=== PATIENT | male | born 1990 | race Caucasian/White ===

== ENCOUNTER 2016-03-13 07:52 | Emergency (ER) | payer BC ==
[~2016-03-13] VITALS: Wt 97.5 kg
== END 2016-03-13 08:58 | disposition home or self-care (01) ==
LOC: ED 07:52
DX: H10.9 Unspecified conjunctivitis (principal); F17.200 Nicotine dependence, unspecified, uncomplicated

== ENCOUNTER 2016-10-08 09:05 | Emergency (ER) | payer BC ==
[~2016-10-08] VITALS: Ht 175.2 cm; Wt 93.0 kg
[2016-10-08] MEDS ORDERED: NAPROSYN500 MG PO (10:18)
[2016-10-08] MEDS ORDERED: PERCOCET 325 MG1 TA2 PO (10:18)
== END 2016-10-08 10:59 | disposition home or self-care (01) ==
LOC: ED 09:05
DX: S42.032A Displaced fracture of lateral end of left clavicle, initial encounter for closed fracture (principal); R03.0 Elevated blood-pressure reading, without diagnosis of hypertension; F17.200 Nicotine dependence, unspecified, uncomplicated; W17.89XA Other fall from one level to another, initial encounter; Y93.89 Activity, other specified; Y92.9 Unspecified place or not applicable; Y99.9 Unspecified external cause status

== ENCOUNTER 2017-05-13 06:43 | Inpatient (IN) | payer BC ==
[~2017-05-13] VITALS: Ht 177.8 cm; Wt 96.6 kg
[2017-05-13] VITALS (7 sets, daily range): BP systolic 89–109; BP diastolic 37–56
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
--- NOTE | ~2017-05-13 | CON ---
[place], [place] REPORT OF CONSULTATION NAME: GAURAV MOHAN UNIT #: [id number] ROOM: [place] [address] DOCTOR: RAGHAV GRIFFITH ED.D (JUAN) BIRTHDATE: [birth year] DOS: 05/15/2017 HISTORY OF PRESENT ILLNESS: The patient is a 26-year-old male referred following a suicide attempt. At the present time, he is in the intensive care unit at [facility]. This patient states he is single but he does have a girlfriend. Apparently he and his girlfriend had an argument which caused him to feel suicidal. He states that he presently works at [employer] and continues to have his job. His family physician is Dr. Resendiz. His medical history is pertinent for depression. He has been following with [facility] [place]. At the present time, he denies any suicidal ideation or plan. He states he has been on 25 mg of Zoloft and it was increased by Dr. Delcid to 50 mg. At the present time, he adamantly denies any suicidal ideation or plan and states he is going to do nothing to harm himself or his girlfriend. He states he will continue to follow up at the counseling center. DIAGNOSIS: Major depressive disorder, recurrent. RECOMMENDATIONS: 1. Continue antidepressant medications as prescribed. 2. Follow up at the counseling center for outpatient therapy. Thank you very much for this consult. RAGHAV GRIFFITH ED.D CM:CONSTR:REPORT OF CONSULTATION 1243 05/15/17 1253 interface
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
--- NOTE | ~2017-05-13 | PR ---
[place], [place] PROGRESS NOTE NAME: GAURAV MOHAN UNIT #: [id number] ROOM: [place] [address] DOCTOR: RICHELLE MCLEAN MD BIRTHDATE: [birth year] DOS: 05/14/2017 CARDIOLOGY PROGRESS NOTE SUBJECTIVE: The patient was seen at his bedside in the intensive care unit today, 05/14/2017, for followup of his recent drug overdose with multiple cardioactive medications. The patient is a 26-year-old man with no previous history of heart disease and no previously available electrocardiograms. He was brought to the Emergency Room after he consumed a variety of prescription medications that he had taken from his stepfather including diuretics, beta blockers, antiplatelet agents, statins, thyroid replacement and ЮЛИЯ inhibitors. Since he has been in the hospital, he has felt well. His blood pressures have been somewhat low and his potassium has been low. Otherwise, he has been doing well. PHYSICAL EXAMINATION: VITAL SIGNS: Today pulse is 53 and regular, blood pressure is 93/54. He is afebrile. NECK: Supple. He has no jugular distention. Carotids are full. LUNGS: Respirations are unlabored. His chest is clear. HEART: Has a regular rhythm without murmurs, rubs or gallops. ABDOMEN: Benign. EXTREMITIES: Showed no edema. LABORATORY DATA: His electrocardiogram today once again shows sinus bradycardia with ST elevation in multiple leads, consistent with an early repolarization change. It is unchanged from the previous tracings. IMPRESSION: 1. Drug overdose with multiple cardiovascular medications. 2. Suicidal ideation. 3. Drug abuse. PLAN: I agree that he should be observed one more day to allow for stabilization of his hemodynamics. Presumably, the medications he took are leaving his system rapidly at this point and his blood pressure should stabilize spontaneously. We will review his echocardiogram in the morning to make sure he has no structural heart disease. If vital signs are stable and the echo looks normal, he can be discharged from a cardiac standpoint. I thank Dr. Mack for asking our advice regarding his care. [place], [place] PROGRESS NOTE NAME: GAURAV MOHAN UNIT #: [id number] ROOM: [place] [address] DOCTOR: RICHELLE MCLEAN MD BIRTHDATE: [birth year] RICHLELE MCLEAN MD CM:PNSTEVIE [id number] RICHELLE MCLEAN MD 05/14/17 1320 interface
--- NOTE | ~2017-05-13 | CON ---
[place], [place] REPORT OF CONSULTATION NAME: GAURAV MOHAN UNIT #: [id number] ROOM: [place] [address] DOCTOR: RICHELLE MCLEAN MD BIRTHDATE: [birth year] DOS: 05/13/2017 CARDIOLOGY CONSULTATION REASON FOR CONSULTATION: Multiple drug overdose, abnormal electrocardiogram. HISTORY OF PRESENT ILLNESS: The patient is a 26-year-old man who has no previous history of heart disease. There are no previous electrocardiograms available. He was brought to the Emergency Room after he consumed a variety of prescription medications that he had taken from his stepfather. These included furosemide, levothyroxine, metoprolol, Plavix, rosuvastatin, vitamin D and lisinopril. The patient is unsure how many of each he may have taken, but states that he took a lot. The prescription had been previously filled on 04/16/2017 and was a 30-day prescription, but it is not clear how many of the pills had actually been taken by the time the patient took the medications. In addition, he had been drinking and his blood alcohol level was elevated at 124. His urine drug screen was positive for benzodiazepines, cannabinoids and cocaine. The patient was somewhat lethargic upon arrival, but his heart rate was regular and in the 70s. Blood pressure was normal at 107/48. He currently feels well. He denies any chest pain or palpitations. He denies any trouble breathing. He denies lightheadedness. He has not had any obvious bleeding. PAST MEDICAL HISTORY: Unremarkable. The patient specifically denies hypertension, diabetes, hyperlipidemia, myocardial infarction or stroke. PAST SURGICAL HISTORY: His only previous surgery is insertion of tubes in his ears. MEDICATIONS: Prior to admission included omeprazole 40 mg daily and Sertraline 25 mg daily. ALLERGIES: The patient has no known drug allergies. FAMILY HISTORY: The patient's father committed suicide by overdosing with medications. There is no family history of early coronary disease. REVIEW OF SYSTEMS: The patient denies diplopia, loss of vision, lightheadedness, syncope or focal weakness. He denies orthopnea or PND. He denies nausea or vomiting. He denies fevers, chills, sweats or recent weight change. He denies any focal weakness. He denies hemoptysis or hematemesis. He denies change in his bowel or bladder habits. He denies bleeding from any site including his urine and bowels. He denies any recent weight change. He denies peripheral edema. He denies skin rashes. He denies polyuria or polydipsia. He denies heat or cold intolerance. Remainder of the review of systems is negative except as noted above. SOCIAL HISTORY: The patient does smoke cigarettes. He also does take drugs on occasion and was positive for benzodiazepines, cocaine and cannabinoids. He [place], [place] REPORT OF CONSULTATION NAME: GAURAV MOHAN UNIT #: [id number] ROOM: [place] [address] DOCTOR: RICHELLE MCLEAN MD BIRTHDATE: [birth year] also can drink alcohol to excess. PHYSICAL EXAMINATION: GENERAL: The patient is a well-nourished white male who is awake, alert and oriented. VITAL SIGNS: Pulse is 70 and regular, blood pressure is 102/54. He is temperature is 99.2. He weighs 96.6 kg and has a body mass index of 30.6. HEENT: Normocephalic and atraumatic. Extraocular muscles are intact. Sclerae are clear. Pupils are equal, round and react to light. The oral mucosa is moist. Tongue is midline. NECK: Supple. He has no jugular distention. Carotids are full. I heard no bruits. He had no neck or supraclavicular masses and no thyromegaly. LUNGS: Respirations are unlabored. His chest is clear to auscultation and percussion. He has no presacral edema or chest wall tenderness. CARDIOVASCULAR: His heart has a regular rhythm without murmurs, rubs or gallops. The PMI is not displaced. He has no precordial heave, lift or thrill. ABDOMEN: Soft and normally active without masses, organomegaly or bruits. EXTREMITIES: Showed no edema. Peripheral pulses were easily palpated bilaterally. LABORATORY DATA: I reviewed his electrocardiogram. It showed sinus rhythm with early repolarization changes. I do not believe his EKG is consistent with acute coronary ischemia. An initial troponin level was normal. IMPRESSIONS AND PLAN: Drug overdose with multiple cardioactive medications including a diuretic, a beta evonne, an ЮЛИЯ inhibitor, thyroid medication as well as an antiplatelet agent and a statin. His vital signs are stable and he shows no signs of acute hemodynamic embarrassment. Thus far, he does seem to be tolerating the medications that he took. At this point, I think that observation and supportive care are all that are indicated. We will follow serial troponin levels as well as serial EKGs to see if there are any trends. If he is still here in 2 days, we can plan on getting an echocardiogram this coming Monday to look at left ventricular function, especially since he does have a history of cocaine abuse. No other evaluation is planned at this time. [facility] and I thank Dr. Mack for asking our advice regarding his care. RICHELLE MCLEAN MD CM:CONSTR:REPORT OF CONSULTATION 1605 05/13/17 2017 interface
--- NOTE | ~2017-05-13 | PR ---
[place], [place] PROGRESS NOTE NAME: GAURAV MOHAN UNIT #: [id number] ROOM: [place] [address] DOCTOR: ROGERIO HEBERT MD BIRTHDATE: [birth year] DOS: SUBJECTIVE: The patient is feeling fairly good, does not have any new complaints. OBJECTIVE: VITAL SIGNS: Blood pressure is 107/56, pulse of 81, respirations 18, temperature 97.7. LUNGS: Diminished breath sounds, clear. HEART: Regular. ABDOMEN: Obese, soft, nontender. EXTREMITIES: Without any edema. ASSESSMENT AND PLAN: 1. Suicidal drug overdose. The patient seems to be stable with no further evidence of hypotension or bradycardia. 2. Elevated T4 noted. This is most likely from the Synthroid that he took as part of his drug overdose. We will avoid further ultrasounds and further testing for right now. Repeat TSH, T3, T4 as an outpatient. 3. Major depression, severe, recurrent. Continue increased dose of Zoloft. I am awaiting a consultation with Dr. Hubbard and Dr. Delcid and after they see the patient, the patient can be discharged. ROGERIO HEBERT MD CM:PNTRANS ROGERIO HEBERT MD 05/15/1723 interface
--- NOTE | ~2017-05-13 | PR ---
[place], [place] PROGRESS NOTE NAME: GAURAV MOHAN UNIT #: [id number] ROOM: [place] [address] DOCTOR: ROGERIO HEBERT MD BIRTHDATE: [birth year] DOS: SUBJECTIVE: The patient says he rested well, does not have any new complaints. OBJECTIVE: VITAL SIGNS: Graphic trend shows blood pressure of 96/54, pulse of 53, respirations 14, temperature 97.8. LUNGS: Diminished breath sounds, clear. HEART: Regular. ABDOMEN: Obese, soft, nontender. EXTREMITIES: Without any edema. LABORATORY DATA: White cell count of 13,000. Normal basic metabolic panel, except for potassium of 3.1. ASSESSMENT AND PLAN: 1. Hypokalemia. Supplementation is given. 2. Hypotension from antihypertensives that he took as an overdose. Continue IV fluids. 3. Abnormal T4 noted on blood work yesterday. We will do dedicated thyroid function test today. ROGERIO HEBERT MD CM:PNTRANS [id number] ROGERIO HEBERT MD 05/14/17 1041 interface
--- NOTE | ~2017-05-13 | DS ---
[place], [place] DISCHARGE SUMMARY [id number] UNIT #: [id number] ROOM: [place] [address] DOCTOR: ROGERIO HEBERT MD BIRTHDATE: [birth year] DOS: 05/15/2017 HOSPITAL COURSE: The patient was admitted to the hospital after suicidal drug overdose. The patient is not known to me. He was admitted on May 13 to the ICU. After admission, he was placed on IV fluids. His blood pressure and heart rate was monitored. Some of the medications that he took were mostly antihypertensives. His TSH was normal, but T4 was quite elevated. This was also from the Synthroid that he took as part of the drug overdose. He was seen by Dr. Warren who recommended continued monitoring. An echocardiogram was ordered, which showed no pathology. Dr. Hubbard and Dr. Delcid saw the patient. Dr. Hubbard did suggest counseling. He had been on antidepressants and the dosage was cut down recently by the primary care physician. The dosage was readjusted back to the higher dose. Dr. Delcid did see the patient and advised that the Zoloft can be increased further to 100 mg and he was advised to go back and see his counselor at [facility]. He was stable enough to discharge as per Dr. Delcid, so discharge arrangements were made for him to go home and follow up with Dr. Resendiz as an outpatient for his primary care. ROGERIO HEBERT MD CM:DISCHARG 16 52 ROGERIO HEBERT MD 05/17/172149 interface
[~2017-05-13 06:43] MED LIST: NAPROSYN500 MG PO; PERCOCET 325 MG1 TA2 PO
[2017-05-13] MEDS ORDERED: SERTRALINE HYDR25 MG PO (06:54)
[2017-05-13] MEDS ORDERED: OMEPRAZOLE40 MG PO (06:54)
[2017-05-13 07:01] LABS: BASO # 0.1 10*3/uL (0.0-0.1); BASO % 0.3 % (0.0-1.0); EOS # 0.1 10*3/uL (0.0-0.4); EOS % 0.5 % (1.0-4.0); HEMATOCRIT 46.8 % (42.0-52.0); HEMOGLOBIN 16.6 g/dl (14.0-18.0); LYMPH # 3.8 10*3/uL (1.3-4.4); LYMPH % 18.5 % (27.0-41.0); MEAN CELL VOLUME 85.1 fl (80.0-94.0); MEAN CORPUSCULAR HGB 30.2 pg (27.0-31.0); MEAN CORPUSCULAR HGB CONC 35.5 g/dl (33.0-37.0); MEAN PLATELET VOLUME 10.4 fl (9.6-12.3); MONO # 1.2 10*3/uL (0.1-1.0); MONO % 5.7 % (3.0-9.0); NEUT # 15.5 10*3/uL (2.3-7.9); NEUT % 74.5 % (47.0-73.0); PLATELET COUNT AUTOMATED 373 10*3/uL (130-400); RED CELL DISTRI WIDTH 12.8 % (0-14.5); WHITE BLOOD COUNT 20.8 10*3/uL (4.8-10.8)
[2017-05-13 07:33] LABS: BUN 5 mg/dl (7-24); CHLORIDE 102 mmol/L (98-107); CREATININE 1.18 mg/dL (0.70-1.30); POTASSIUM 3.3 mmol/L (3.5-5.1); SODIUM 138 mmol/L (136-145)
[2017-05-13 07:37] LABS: ACT PARTIAL THROMBO TIME 23.5 SECONDS (20.8-31.5)
[2017-05-13 07:44] LABS: ALBUMIN 4.5 gm/dl (3.1-4.5); BILIRUBIN, DIRECT 0.1 mg/dL (0.0-0.2); TOTAL PROTEIN 8.1 gm/dL (6.4-8.2)
[2017-05-13 07:48] LABS: ACETAMINOPHEN (TYLENOL) < 2.0 ug/ml (10-30)
[2017-05-13 07:52] LABS: THYROID STIM HORMONE (HS) 4.8 uIU/ml (0.358-4.75)
[2017-05-13 11:12] LABS: BILIRUBIN NEGATIVE (NEGATIVE); BLOOD NEGATIVE (NEGATIVE); CLARITY CLEAR (CLEAR); COLOR YELLOW (YELLOW); GLUCOSE NEGATIVE (NEGATIVE); KETONE NEGATIVE (NEGATIVE); LEUKO ESTERASE NEGATIVE (NEGATIVE); NITRITE NEGATIVE (NEGATIVE); UROBILINOGEN 0.2 E.U./dl (0.2-1.0)
[2017-05-13 11:19] LABS: EPITHELIAL CELLS 0-2; RBC 0-2 rbc/hpf (0-2); URINE AMPHETAMINES < 1000 (1000ng/ml); URINE BARBITURATES < 200 (200ng/ml); URINE BENZODIAZEPINES > 200 (200ng/ml); URINE CANNABINOIDS (THC) > 50 (50ng/ml); URINE COCAINE > 300 (300ng/ml); URINE METHADONE < 300 (300ng/ml); URINE OPIATES < 300 (300ng/ml)
[2017-05-13 11:21] LABS: URINE PHENCYCLIDINE < 25 (25ng/ml)
[2017-05-14 00:05] VITALS: BP 101/56
[2017-05-14 04:00] VITALS: BP 96/54
[2017-05-14 05:50] LABS: BUN 10 mg/dl (7-24); CHLORIDE 102 mmol/L (98-107); CREATININE 1.12 mg/dL (0.70-1.30); FREE T4 2.61 ng/dl (0.76-1.46); POTASSIUM 3.3 mmol/L (3.5-5.1); SODIUM 141 mmol/L (136-145)
[2017-05-14 06:06] LABS: TROPONIN I < 0.015 ng/ml (<0.045)
[2017-05-14 06:33] LABS: BASO % 0.3 % (0.0-1.0); EOS # 0.2 10*3/uL (0.0-0.4); EOS % 1.7 % (1.0-4.0); HEMATOCRIT 44.6 % (42.0-52.0); HEMOGLOBIN 15.5 g/dl (14.0-18.0); LYMPH % 22.2 % (27.0-41.0); MEAN CELL VOLUME 89.2 fl (80.0-94.0); MEAN CORPUSCULAR HGB CONC 34.8 g/dl (33.0-37.0); MEAN PLATELET VOLUME 10.6 fl (9.6-12.3); MONO # 1.1 10*3/uL (0.1-1.0); MONO % 8.2 % (3.0-9.0); NEUT # 9.1 10*3/uL (2.3-7.9); NEUT % 67.2 % (47.0-73.0); PLATELET COUNT AUTOMATED 270 10*3/uL (130-400); RED CELL DISTRI WIDTH 13.2 % (0-14.5); WHITE BLOOD COUNT 13.5 10*3/uL (4.8-10.8)
[2017-05-14 08:00] VITALS: BP 98/70
[2017-05-14 08:42] LABS: THYROXINE (T4) TOTAL 17.7 ug/dl (4.5-12.1)
[2017-05-14 09:45] LABS: THYROID STIM HORMONE (HS) 0.536 uIU/ml (0.358-4.75)
[2017-05-14 12:00] VITALS: BP 93/54
[2017-05-14 16:00] VITALS: BP 113/64
[2017-05-14 20:00] VITALS: BP 120/75
[2017-05-15] VITALS: BP 116/59
[2017-05-15 04:00] VITALS: BP 107/56
[2017-05-15 08:00] VITALS: BP 111/58
[2017-05-15] MEDS ORDERED: TAPAZOLE5 MG PO (08:20)
[2017-05-15] MEDS ORDERED: SERTRALINE HYDR50 MG PO (08:20)
[2017-05-15] MEDS ORDERED: SERTRALINE HYD100 MG PO (10:01)
[2017-05-15 12:00] VITALS: BP 122/60
== END 2017-05-15 12:50 | disposition home or self-care (01) | DRG 918 ==
LOC: ED 06:43 → EDHOLD 07:36 → ICCU 07:36
PROVIDERS: Emergency Medicine; Emergency Medicine Emergency Medical Services; Internal Medicine
DX: T43.222A Poisoning by selective serotonin reuptake inhibitors, intentional self-harm, initial encounter (principal); R45.851 Suicidal ideations; F33.9 Major depressive disorder, recurrent, unspecified; I95.2 Hypotension due to drugs; E87.6 Hypokalemia; F19.10 Other psychoactive substance abuse, uncomplicated; F12.90 Cannabis use, unspecified, uncomplicated; F17.210 Nicotine dependence, cigarettes, uncomplicated; F14.90 Cocaine use, unspecified, uncomplicated; Z87.81 Personal history of (healed) traumatic fracture; Y92.89 Other specified places as the place of occurrence of the external cause; Z79.899 Other long term (current) drug therapy

== ENCOUNTER 2018-12-15 10:58 | Emergency (ER) | payer BC ==
[~2018-12-15] VITALS: Wt 97.5 kg
[~2018-12-15 10:58] MED LIST changes: +CYCLOBENZAPRINE5 M3 PO; +MEDROL DOSEPAK4 MG PO; +Motrin,Rufen800 MG PO; +OMEPRAZOLE40 MG PO; +SERTRALINE HYD100 MG PO; +SERTRALINE HYDR25 MG PO; +SERTRALINE HYDR50 MG PO; +TAPAZOLE5 MG PO
[2018-12-15] MEDS ORDERED: MEDROL DOSEPAK4 MG PO (12:06)
[2018-12-15] MEDS ORDERED: NAPROSYN500 MG PO (12:06)
[2018-12-15] MEDS ORDERED: METHOCARBAMOL500 M1 PO (12:06)
== END 2018-12-15 12:25 | disposition home or self-care (01) ==
LOC: ED 10:58
DX: M54.42 Lumbago with sciatica, left side (principal); Z79.899 Other long term (current) drug therapy; X50.0XXA Overexertion from strenuous movement or load, initial encounter; Y93.89 Activity, other specified; Y92.89 Other specified places as the place of occurrence of the external cause; Y99.9 Unspecified external cause status